=== PATIENT | male | born 1950 | race Caucasian/White ===

== ENCOUNTER 2023-06-24 04:35 | Day surgery (SDC) | payer MEDICARE, SELFPAY ==
[2023-06-13 10:32] VITALS: BMI 24.4
--- NOTE | 2023-06-23 13:49 | PM.HPGS ---
History of Present Illness History of Present Illness Consent: Risks, benefits, and alternatives have been discussed and questions answered. Patient agrees to proceed with procedure. Chief complaint: hx colon polyps Narrative: Nigel Putnam is a 73 year old male here for colon cancer screening. He has a history of polyps having had previous colonoscopies in 2010 and 2018. O2 sh go. Review of Systems Review of Systems: All systems reviewed & are unremarkable except as noted in HPI and below PMFSH Past Medical History Medical History BMI 24.0-24.9, adult Colon polyp Shoulder pain, right Family History Family History Mother Family history of malignant neoplasm of breast in first degree relative Breast cancer Lung cancer Father Heart disease Kidney disease Sibling Breast cancer Other Family history of coronary artery disease Social History Social History Smoking status: Never smoker Second hand tobacco smoke exposure: No Alcohol intake: never Substance use: never Substance use type: does not use Lack of Transportation: No Lack of Food: Never True Current Housing: I Have Housing Concerned About Future Housing: No Difficulty Paying Gas/Electric Bills: No Difficulty Paying for Meds: No Currently Unemployed: No Education: Master's Degree or Higher Difficulty w/ Childcare or Family Care: No Living arrangements: with family 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 Gender identity (if verbalized by the patient): Male Sexual Orientation (if Verbalized by the Patient): Straight or Heterosexual Spiritual care concerns: No Meds Home Medications and Allergies Home Medications Medication Instructions Recorded Confirmed Type No Home Medications 12/22/20 06/13/23 History Allergies Allergy/AdvReac Type Severity Reaction Status Date / Time No Known Allergies Allergy Mild Verified 06/24/23 06:15 Exam Const: General: alert Orientation/consciousness: patient oriented x3 Resp: Auscultation: clear to auscultation bilaterally Cardio: Rhythm: regular rhythm GI: GI Palp: Yes Soft to palpation and No Tenderness to palpation present (GI) Neuro: General: patient oriented x3 Assessment and Plan Assessment and plan (1) Colon cancer screening: Code(s): Z12.11 - Encounter for screening for malignant neoplasm of colon Status: Acute Assessment and Plan: Colonoscopy with possible biopsy or polypectomy or cautery or injection of substances.
[2023-06-24 06:16] VITALS: BP 143/83; PULSE 44; RESP 20; TEMP 36.3; O2SAT 100
[2023-06-24] MEDS: LACTATED RINGERS 1,000 ML 150 ML IV CONT (06:25)
--- NOTE | 2023-06-24 07:19 | P.PNAN_ITS ---
Anes - Initial Pre Proc Eval Procedure: Operation Date: 06/24/23 07:30 Proposed Procedures p Colonoscopy - Deepak Sung MD Date/Time: 06/24/23 07:19 Surgeon: Deepak Sung MD Pre Op Diagnosis: hx colon polyps Patient Data Age: 73 Gender: M Height: 1.8 m Weight: 77 kg Last Vital Signs Temp 97.3 F L 06/24/23 06:16 Pulse 44 L 06/24/23 06:16 Resp 20 06/24/23 06:16 BP 143/83 H 06/24/23 06:16 Pulse Ox 100 06/24/23 06:16 O2 Del Method Room Air 06/24/23 06:16 Allergies Allergy/AdvReac Type Severity Reaction Status Date / Time No Known Allergies Allergy Mild Verified 06/24/23 06:15 Home Medications Medication Instructions Recorded Confirmed Type No Home Medications 12/22/20 06/13/23 History Patient hx anesthesia problems: none Family hx anesthesia problems: none Results Review: All pre-operative results and documents have been reviewed as part of the pre- operative evaluation. [facility] Past Medical History Medical History BMI 24.0-24.9, adult Colon polyp Shoulder pain, right Family History Family History Mother Family history of malignant neoplasm of breast in first degree relative Breast cancer Lung cancer Father Heart disease Kidney disease Sibling Breast cancer Other Family history of coronary artery disease Social History Social History Smoking status: Never smoker Second hand tobacco smoke exposure: No Alcohol intake: never Substance use: never Substance use type: does not use Lack of Transportation: No Lack of Food: Never True Current Housing: I Have Housing Concerned About Future Housing: No Difficulty Paying Gas/Electric Bills: No Difficulty Paying for Meds: No Currently Unemployed: No Education: Master's Degree or Higher Difficulty w/ Childcare or Family Care: No Living arrangements: with family 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 Gender identity (if verbalized by the patient): Male Sexual Orientation (if Verbalized by the Patient): Straight or Heterosexual Spiritual care concerns: No Anes - Eval Final PreProcedure Day of Procedure 06/24/23 07:19 Patient weight: normal Heart: regular rate and rhythm Lungs: clear to auscultation Airway: Mallampati scale class II Neurological: alert and oriented Last oral intake: >/= 8 hours ASA classification: I Emergent: no Anesthetic plan: proceed Anesthesia type and monitoring: general GIVS and standard monitoring Results Review: All pre-operative results and documents have been reviewed as part of the pre- operative evaluation. Informed Consent: The patient's anesthetic plan and its attendant risks and benefits were discussed with the patient/family/POA. Questions were solicited and answers provided to the satisfaction of the patient/family/POA.
[2023-06-24 07:41] VITALS: BP 117/66; PULSE 49; RESP 19; O2SAT 95
[2023-06-24 07:51] VITALS: BP 99/53; PULSE 53; RESP 15; O2SAT 100
[2023-06-24 08:01] VITALS: BP 114/70; PULSE 45; RESP 19; O2SAT 99
== END 2023-06-24 08:04 | disposition home or self-care (01) ==
PROVIDERS: PCP Family Medicine; Visit Provider Internal Medicine Gastroenterology
PROC: 0DJD8ZZ Inspection of Lower Intestinal Tract, Via Natural or Artificial Opening Endoscopic (ICD-10-PCS; CPT 45378; principal; 2023-06-24 07:30)
DX: Z12.11 Encounter for screening for malignant neoplasm of colon (principal); K57.30 Diverticulosis of large intestine without perforation or abscess without bleeding; K64.8 Other hemorrhoids; Z86.010 Personal history of colon polyps
CPT/HCPCS: G0105; J2704; J7120